=== PATIENT | male | born 1985 | race Caucasian/White ===

== ENCOUNTER 2017-07-09 07:31 | Emergency (ER) | payer MEDICAID ==
[~2017-07-09] VITALS: Ht 182.9 cm; Wt 144.7 kg
[~2017-07-09 07:31] MED LIST: AEROCHAMBER1 DEV IH; ALBUTEROL2 PUFFS/17 IN; AZITHROMYCIN250 MG PO; HYDROCODONE 7.51 TAB PO
[2017-07-09] MEDS ORDERED: MELOXICAM15 MG PO (07:41)
[2017-07-09] MEDS ORDERED: GABAPENTIN300 M1 PO (07:42)
[2017-07-09] MEDS ORDERED: PREDNISONE 10MG10 MG PO (07:43)
--- OUTSIDE RECORDS SUMMARY | 2017-07-09 07:54 | External Medical Summary Rpt ---
Author Author NARAYAN Production, JEAN PIERRELUIS Production Organization [employer] Address Unknown Phone Unavailable Results MRI LUMBAR SPINE WO CONTRAST Observa Value Referen Units Interpr Notes Date tion ce etation Range \.br\TN No No No No Feb 07 OCEDURE informa informa informa informa 2017 : MRI tion in tion in tion in tion in 8:20 AM LUMBAR source source source source SPINE, data data data data WITHOUT CONTRAS T, 02/08/20 17 8:20 AM\.br\ \.br\IN DICATIO NS: Spondyl olisthe sis. Back pain with right lower extremi ty\.br\ radicul opathy. \.br\\. br\COMP ARISON: Radiogr aphs 01/21/20 17. No prior MRI..\. br\\.br \FINDIN GS: Noncont rast MRI lumbar spine. There is a transit ional\. br\thor acolumb ar\.br\ vertebr a which has previou sly been labeled L1. Will continu e this numberi ng\.br\ scheme for consist ency of countin g. Normal conus and lumbar alignme nt.\.br \There is\.br\ grade 1 degener ative anterol isthesi s of L4 on L5. Alignme nt is otherwi se\.br\ unremar kable.\ .br\\.b r\L1-L3 intersp aces are normal. \.br\\. br\L4-5 : There is bilater al facet arthrit is with grade 1 degener ative\. br\ante rolisth esis of L4 on L5. There is disc degener ation and desicca tion\.b r\with\ .br\pos terior bulging . No central canal stenosi s. There is moderat e narrowi ng\.br\ of the\.br \left lateral recess and minimal narrowi ng of the right lateral recess. \.br\Th ere is\.br\ moderat e narrowi ng of the neural foramin a bilater ally with possibl e mass\.b r\effec t\.br\u cory the exiting L4 nerve roots.\ .br\\.b r\L5-S1 : Negativ e intersp karsten.\.b r\\.br\ IMPRESS ION:\.b r\There is a transit ional thoraco lumbar vertebr a labeled L1 for\.br \counti ng purpose s. Promine nt facet arthrit is bilater ally at L4-5 with grade\. br\1\.b r\degen erative anterol isthesi s of L4 on L5. There is also posteri or disc\.b r\bulgi ng.\.br \This results in moderat e narrowi ng of the neural foramin a bilater ally with\.b r\possi ble mass effect upon either or both L4 nerve roots.. \.br\ XR KNEE RIGHT AP LATERAL AND AXIAL Observa Value Referen Units Interpr Notes Date tion ce etation Range EXAMINA No No No No Jan 20 TION: informa informa informa informa 2016 XR KNEE tion in tion in tion in tion in 6:45 PM RIGHT source source source source AP data data data data LATERAL AND AXIAL\. br\\.br \DATE: 01/21/20 17 6:45 PM\.br\ \.br\HI STORY: Worseni ng right knee pain.\. br\\.br \COMPAR NADYA: None.\. br\\.br \TECHNI QUE: 4 views of the right knee.\. br\\.br \FINDIN GS: Moderat e patella r lateral ization is noted. There is no acute\. br\frac ture\.b r\or disloca tion. Moderat e femorot ibial and moderat e to advance d\.br\p atellof emoral\ .br\ost eoarthr itic changes are noted and advance d for age. There is no\.br\ signifi cant\.b r\capsu lar distent ion.\.b r\\.br\ IMPRESS ION:\.b r\\.br\ 1. Negativ e for acute fractur e or disloca tion.\. br\\.br \2. Advance d for age tricomp artment al osteoar throsis .\.br\\ .br\If there is clinica l concern for interna l derange ment, please conside r MRI\.br \imagin g.\.br\ XR LUMBAR SPINE AP AND LATERAL Observa Value Referen Units Interpr Notes Date tion ce etation Range EXAMINA No No No No Jan 20 TION: informa informa informa informa 2016 XR tion in tion in tion in tion in 6:43 PM LUMBAR source source source source SPINE data data data data AP AND LATERAL \.br\\. br\DATE : 01/21/20 17 6:43 PM\.br\ \.br\HI STORY: Low back pain.\. br\\.br \COMPAR NADYA: None.\. br\\.br \TECHNI QUE: 4 views of the lumbar spine.\ .br\\.b r\FINDI NGS: For the purpose s of this report, small ribs are describ ed at L1.\.br \Please correla te with radiogr aphic imaging and direct consult ation if\.br\ necessa ry\.br\ prior to any surgica l or therape utic interve ntion.\ .br\\.b r\There is no bhavik angela deformi ty. With current positio jacques, there is 9 mm\.br\ anterol isthesi s of L4 on L5. Bilater al pars defects are noted at L4.\.br \Modera te\.br\ disc height loss is noted at L4-L5 and mild height loss is noted at L5-S1.\ .br\Deg enerati ve changes are also noted at the lower thoraci c spine. Right hip\.br \osteoa rthrosi s is also present .\.br\\ .br\IMP RESSION :\.br\\ .br\1. For the purpose s of this report, small ribs are describ ed at L1. Please\ .br\cor relate with imaging and direct consult ation if necessa ry prior to any\.br \surgic al or therape utic interve ntion.\ .br\\.b r\2. Isthmic /lytic spondyl olisthe sis at L4-L5. There is 9 mm anterol isthesi s\.br\o f L4\.br\ and L5 with current positio jacques.\. br\\.br \2. Moderat e degener ative disc/en dplate change at L4-L5.\ .br\\.b r\If there are radicul ar clinica l symptom s, please conside r MRI imaging .\.br\
--- OUTSIDE RECORDS SUMMARY | 2017-07-09 07:54 | External Medical Summary Rpt | CCD ---
Author Author , NARAYAN BUSCH Address Unknown Phone [email or web address] Care Team Providers Care Porcelain Technician Name Role Phone Linette Andrade MD, Unavailable Unavailable Linette Andrade MD Purpose Continuity of Care Document - 02-03-2013 through 2016 Problems Code Diagnosis DOS Provider Status 461.9 461.9 ACUTE 09-19-2013 [place] [facility]USIT[facility] E66.01 Morbid (severe) obesity due to excess calories E66.09 Other obesity due to excess calories G89.4 Chronic pain syndrome H66.002 Acute suppurative otitis media without spontaneous rupture of ear drum, left ear I10 Essential (primary) hypertensio n K42.9 Umbilical hernia without obstruction or gangrene M17.11 Unilateral primary osteoarthri tis, right knee M43.10 Spondylolis thesis, site unspecified M43.16 Spondylolis thesis, lumbar region 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, 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, lumbosacral region M51.36 Other interverteb ral disc degeneratio n, lumbar region M54.16 Radiculopat hy, lumbar region M79.1 Myalgia M79.671 Pain in right foot M79.672 Pain in left foot Allergies, Adverse Reactions, Alerts Type Drug Allergy Adverse Reaction to Substance Substance Reaction Severity Amoxicillin Unknown Unknown Vital Signs 09-19-2013 00:24 Name Value Interpretat Reference Comment ion Range BP 95 mm[Hg] Diastolic BP Systolic 162 mm[Hg] Heart 102 /min Rate/Pulse O2% 98 % Respiratory 20 /min Rate 02-03-2013 11:11 Name Value Interpretat Reference Comment ion Range Body 98.5 [degF] Temperature BP 78 mm[Hg] Diastolic BP Systolic 144 mm[Hg] Heart 85 /min Rate/Pulse O2% 95 % Respiratory 20 /min Rate 02-03-2013 09:58 Name Value Interpretat Reference Comment ion Range Body 98.8 [degF] Temperature BP 98 mm[Hg] Diastolic BP Systolic 162 mm[Hg] Heart 86 /min Rate/Pulse O2% 96 % Respiratory 20 /min Rate Encounters Encounter Start End Date Code Location Performer Type Date Emergency MARCIE Andrade MD (ER) 4 23:48 4 00:[address] [facility] Emergency MARCIE Ivy (ER) 3 09:42 3 11:15 [facility] Yeison Baez
--- OUTSIDE RECORDS SUMMARY | 2017-07-09 07:54 | External Medical Summary Rpt | CCD ---
Author Author [employer] Organization [employer] Address Unknown Phone Unavailable Purpose Continuity of Care Document - through 2016
--- OUTSIDE RECORDS SUMMARY | 2017-07-09 07:54 | External Medical Summary Rpt | CCD ---
Author Author , NARAYAN Organization NARAYAN Address Unknown Phone [email or web address] Immunization Name Date Rout CVX Reac Dose Comm Prov Is Faci e tion ent ider Refu lity Give sed n Hep 09-0 8 999 Hist H196 No H196 B, 7-20 oric ped/ 00 al adol Info rmat ion - Sour ce Unsp ecif ied Td 08-0 9 999 Hist H196 No H196 (sharon 3-20 oric lt), 00 al Info adso rmat rbed ion - Sour ce Unsp ecif ied Hep 08-0 8 999 Hist H196 No H196 B, 3-20 oric ped/ 00 al adol Info rmat ion - Sour ce Unsp ecif ied MMR 08-1 3 999 Hist H196 No H196 6-19 oric 96 al Info rmat ion - Sour ce Unsp ecif ied
--- OUTSIDE RECORDS SUMMARY | 2017-07-09 07:54 | External Medical Summary Rpt | CCD ---
Author Author , NARAYAN BUSCH Address Unknown Phone [email or web address] Care Team Providers Care Dog Food Dough Mixer Name Role Phone Linette Andrade MD, Unavailable Unavailable Linette Andrade MD Purpose Continuity of Care Document - 02-03-2013 through 2016 Problems Code Diagnosis DOS Provider Status 461.9 461.9 ACUTE 09-19-2013 [place] SINUSITIS [facility] E66.01 Morbid (severe) obesity due to excess [...] Andrade MD (ER) 4 23:48 4 00:24 [facility] Emergency MARCIE Ivy (ER) 3 09:42 3 11:15 [facility] Yeison Baez
--- OUTSIDE RECORDS SUMMARY | 2017-07-09 07:54 | External Medical Summary Rpt | CCD ---
Author Author , NARAYAN Organization NARAYAN Address Unknown Phone [email or web address] Immunization Name Date Rout CVX Reac Dose [...]
--- OUTSIDE RECORDS SUMMARY | 2017-07-09 07:54 | External Medical Summary Rpt ---
Author Author NARAYAN Production, JEAN PIERRELUIS Production Organization [employer] Address Unknown Phone Unavailable Results MRI LUMBAR SPINE WO CONTRAST Observa Value Referen Units Interpr Notes Date tion ce etation Range \.br\MI No No No No Feb 07 OCEDURE [...]
--- NOTE | 2017-07-09 08:28 | Emergency Room Report ---
History of Present Illness Time Seen by 0826 Presenting Problem in Triage Pt arrived:Walked Presenting Problem:PT STATES THAT LASTNIGHT HE WAS RIDING IN A DUMP TRUCK AND HIT HIS RIGHT KNEE ON THE DOOR HANDLE. PT STATES HE IS UNABLE TO EXTEND HIS KNEE OUT. 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 N Clinical Suspician of Infection? N Mental Status: 1 - Regular (Normal Baseline) Sepsis Risk:Possible Sepsis Risk Have you (or family members/close friends) recently traveled outside the [place]? N If Yes, where/when: Have you had exposure to infectious disease within the past month? N TB? Other? Specify: Source patient, RN notes reviewed, family, RN/MD Exam Limitations no limitations Comment This 31-year-old male sustained a RIGHT knee injury while riding a dump truck last night, and hitting his RIGHT knee against a door handle. He that he has been previously seen by an orthopedic surgeon who has advised him that he has severe osteoarthritis that he will need knee replacement. Patient is not happy with this decision. He would like to have a second opinion. Patient walked in here and he appears to be in minimal distress. I do not agree with nurse's assessment the patient is unable to extend his RIGHT knee. ALLERGIES Coded Allergies: MDX - Amoxicillin (AMOXICILLIN) (L-IONCZO-FLLW/THROAT 09/18/13) Home Medications Reported Medications Meloxicam (Meloxicam 15MG) 15 MG PO BID #30 Gabapentin 300 MG PO BID #180 Prednisone (Prednisone 10MG) 10 MG PO BID #30 History Medical History General CAD? No Angina: No CO: No Hypertension? Yes Hyperlipidemia? No CHF? No DVT? No PE? No COPD? No Asthma? No Anemia? No GERD? No Gastric ulcers? No GI Bleed? No Hernia? No Thyroid Problems? No Hypothyroidism? No CVA? No Seizures? No Diabetes? No Renal Insuffiency? No End Stage Renal Disease? No UTI? No Stones? No BPH? No GB Disease: No Nephritic Syndrome? No Asplenia? No Hepatitis? No Sickle Cell Disease? No Arthritis? No Migraines? No Cataracts? No Glaucoma? No MRSA? No HIV? No TB? No Anxiety? No Depression? No Cancer? No More? No Immunization Hx DT/Tetanus Unknown Surgical Hx Previous Surgery?N Social History Smoking Hx Smoker: Current Every Day Smoker Tobacco: Yes Type Chew Packs/day < 1 Pack Alcohol Alcohol: Yes Review of Systems All Other Systems Reviewed and Negative Musculoskeletal joint pain (RIGHT knee pain) Physical Exam Vital Signs Vital Signs Date Time Temp Pulse Resp B/P Pulse O2 O2 Flow FiO2 Ox Delivery Rate 07/09 0840 98.1 101 20 156/114 96 07/09 0733 101 20 96 General Appearance normal appearance, WD/WN, no apparent distress Respiratory Status Yes: trachea midline, chest symmetrical, non tender chest. No: respiratory distress. Lung Sounds bilateral: normal breath sounds, lungs clear. Cardiovascular normal exam, regular rate/rhythm, no peripheral edema, no gallop, no JVD, no murmur, no rub, normal peripheral pulses Gastrointestinal normal bowel sounds, normal exam, non tender, soft, no organomegaly Extremities normal range of motion, right lateral knee tender to palpation, in the distal lateral thigh area Neurologic alert, cement sack breaker II-XII nml as tested, normal exam, oriented x 3 Mental status normal mood/affect Skin intact, normal color, warm/dry, multiple and extensive varicose veins Medical Decision Making LABS/Meds/Orders Pt receiving controlled substance in ED? No Comment 0820-patient advised to follow-up with our local orthopedic service, Dr. Cadet or Dr. Judge, at his earliest convenience. Nurse called upstairs to the orthopedic suite and we were able to obtain a walk-in appointment upon discharge from the emergency room. Results/Orders Orders Procedure Date/time Status KNEE-3 VIEWS-RT 07/09 0750 Active XRAY/CT/US XRAY/CT/US XRAY knee (right) XR interpretation by reviewed by me, discussed w/radiologist Xray Results no fracture seen (extensive OA) Departure Departure Time of Disposition 0831 Disposition DC Home or Self Care(routine) Clinical Impression Primary Impression: Contusion of right knee Qualifiers: Encounter type: initial encounter Qualified Code: S80.01XA - Contusion of right knee, initial encounter Condition STABLE Referrals Howie Cadet MD tomorrow at 10:30am, as schedule by the ER staff today Patient Instructions DI for Knee Pain Additional Instructions This follow-up with Dr. Cadet tomorrow at 10:30am. Discharge Counseling Counseled pt/family regarding diagnosis, test results, medications/RX, home care, follow up needs Comment This follow-up with Dr. Cadet tomorrow at 10:30am. ED Critical Care Critical Care No at 1440
[2017-07-09 08:40] VITALS: BP 156/114
--- NOTE | 2017-07-09 10:33 | RADIOLOGY REPORT PS360 ---
KNEE-3 VIEWS-RT HISTORY: Post traumatic pain HIT KNEE ORDERING PHYSICIAN: Frandy Beach MD PATIENT AGE: 31 years COMPARISON: None FINDINGS: No fracture or dislocation. No lytic or blastic change. Normal mineralization. Tricompartmental osteoarthritic changes are present. There is a knee joint effusion in the suprapatellar region. 7 mm calcific density is present along the posterior aspect of the knee joint and there are 2 calcific densities along the anterior aspect of the knee joint suggesting small loose bodies. Ununited ossification center at the tibial tuberosity noted. IMPRESSION: Osteoarthritis with loose bodies. Knee joint effusion
== END 2017-07-09 08:41 | disposition home or self-care (01) ==
LOC: ER 07:31
DX: S80.01XA Contusion of right knee, initial encounter (principal); I10 Essential (primary) hypertension; F17.210 Nicotine dependence, cigarettes, uncomplicated; W22.8XXA Striking against or struck by other objects, initial encounter